=== PATIENT | female | born 1990 | race Caucasian/White ===

== ENCOUNTER 2017-09-09 21:53 | Emergency (ER) | payer SELFPAY ==
[2017-09-09] MEDS ORDERED: IPRATROPIUM/ALBUTEROL 0.5-2.5 MG/3 ML AMPUL NEB ONE ×2 (22:11→22:20)
[2017-09-09 22:34] VITALS: BP 139/85
[2017-09-10] MEDS ORDERED: PREDNISONE 20 MG TABLET PO ONE
[2017-09-10] MEDS: ALBUTEROL SULFATE 0.083% NEB 2.5 MG/3 ML AMPUL NEB SCH ×2 (00:03→00:18)
[2017-09-10] MEDS ORDERED: ALBUTEROL SULFATE 0.083% NEB 2.5 MG/3 ML AMPUL NEB ONE (01:20)
[2017-09-10] MEDS ORDERED: ALBUTEROL SULFATE HFA (90 MCG/PUFF) 8 GM MDI (1 MDI/ER DISP) IH ONE (02:26)
--- NOTE | 2017-09-10 02:30 | ER Document Report ---
ED General - General Chief Complaint: Breathing Difficulty Stated Complaint: DIFFICULTY BREATHING Time Seen by Provider: 09/10/17 00:17 Notes: Patient is a 26-year-old female with a history of asthma presents with complaint of difficulty breathing wheezing. She says she does have some pets. She is down visiting from [place]. She says she has noticed that in the last months she has had some intermittent difficulty breathing and wheezing. She is always had some allergies in response to pets and takes Zyrtec. She said tonight she did have a lot of wheezing therefore came to the ER. No fevers. No congestion. No production with the cough. She is non-smoker. She has no other complaints at this time. TRAVEL OUTSIDE OF THE [place] IN LAST 30 DAYS: No - Related Data Allergies/Adverse Reactions: cat dander Allergy (Verified 09/09/17 22:06) Past Medical History - Social History Smoking Status: Never Smoker Chew tobacco use (# tins/day): No Frequency of alcohol use: None Drug Abuse: None Family History: Reviewed & Not Pertinent Patient has suicidal ideation: No Patient has homicidal ideation: No Renal/ Medical History: Denies: Hx Peritoneal Dialysis Review of Systems - Review of Systems Notes: My Normal Review Basic REVIEW OF SYSTEMS: CONSTITUTIONAL : Denies fever, chills, or sweats. Denies recent illness. EENT: Denies eye, ear, throat, or mouth pain or symptoms. Denies nasal or sinus congestion. RESPIRATORY: Some wheezing. GASTROINTESTINAL: Denies abdominal pain. Denies nausea, vomiting, or diarrhea. Denies constipation. Last BM: MUSCULOSKELETAL: Denies neck or back pain or joint pain or swelling. SKIN: Denies rash or skin lesions. NEUROLOGICAL: Denies altered mental status or loss of consciousness. ALL OTHER SYSTEMS REVIEWED AND NEGATIVE. Physical Exam - Vital signs Vitals: Temp Pulse Resp BP Pulse Ox 98 F 90 28 H 139/85 H 96 09/09/17 22:05 09/09/17 22:05 09/09/17 22:05 09/09/17 22:05 09/09/17 22:05 - Notes Notes: General Appearance: Well nourished, alert, cooperative, mild acute distress, no obvious discomfort. Vitals: reviewed, See vital signs table. Head: no swelling or tenderness to the head Eyes: PERRL, EOMI, Conjuctiva clear Mouth: No decreasd moisture Throat: Normal-appearing pharynx without swelling. Lungs: diffuse wheezing, No rales, scattered rhonci, No accessory muscle use, good air exchange bilaterally. Heart: Normal rate, Regular rythm, No murmur, no rub Abdomen: Normal BS, soft, No rigidity, No abdominal tenderness, No guarding, no rebound, no abdominal masses, no organomegaly Extremities: strength 5/5 in all extremities, good pulses in all extremities, no swelling or tenderness in the extremities, no edema. Skin: warm, dry, appropriate color, no rash Neuro: speech clear, oriented x 3, normal affect, responds appropriately to questions. Course - Re-evaluation Re-evalutation: 09/10/17 02:29 Patient looks much improved. Patient is well-appearing. Her breathing is improved. The nebulizer treatments have cleared her lung mtz and she no longer has wheezing or rhonchi. Sent home with an albuterol inhaler. I will place her on prednisone. She says she goes back to [place] next 1-2 days and she will follow-up closely with her primary care doctor. I talked her about asking her doctor about referral to an web database developer. I encouraged her return to ER immediately if she has fevers, current difficulty breathing, or feels unwell. I initially want to obtain an x-ray but patient refused at this time and says her breathing is worse she would reconsider the chest x-ray. Dictation of this chart was performed using voice recognition software; therefore, there may be some unintended grammatical errors. - Vital Signs Vital signs: Temp Pulse Resp BP Pulse Ox 98 F 90 18 139/85 H 97 09/09/17 22:05 09/09/17 22:05 09/10/17 01:08 09/09/17 22:05 09/10/17 01:08 Discharge - Discharge Clinical Impression: Wheezing Condition: Good Disposition: HOME, SELF-CARE Additional Instructions: Please use the inhaler as 2 puffs every 4 hours as needed for wheezing. Please follow-up with your doctor when you get back to [place]. Please take the steroids as prescribed. Please return to the ER immediately if you have recurrent wheezing not being controlled by the inhaler, difficulty breathing, fevers, or feel unwell. Prescriptions: Prednisone [Deltasone 20 mg Tablet] 3 tab PO DAILY 4 Days tablet
== END 2017-09-10 03:07 | disposition home or self-care (01) ==
LOC: ER 21:53
DX: R06.2 Wheezing (principal); R06.02 Shortness of breath
CPT/HCPCS: 94640 ×2; 99284; J7512; J3490; J7620